=== PATIENT | male | born 1965 | race Caucasian/White ===

== ENCOUNTER 2018-09-05 22:14 | Emergency (ER) | payer MEDICARE, OTHER ==
[~2018-09-05] VITALS: Ht 172.7 cm; Wt 81.6 kg
--- NOTE | 2018-09-05 22:33 | NUR ---
PT BIB FAMILY. AAOX4. NAD. AMBULATE WITH AN ELECTRIC WHEELCHAIR. PT CAME W/O COMPLAINT OF BS IN THE 200-300 IN THE PAST 2 WEEKS. PT HAVE NOT BEEN TAKING HIS MEDICATION FOR THE 5 WEEKS. BS WAS TAKEN. AWAITING MD BECERRA.
--- NOTE | 2018-09-05 22:55 | NUR ---
IV LINE OBTAINED L AC 18G. BLOOD DRAWN AND [employer] AT BEDSIDE.
[2018-09-05 22:58] LABS: BASOPHILS # (AUTO) 0.2 /CMM (0.0-0.2); BASOPHILS % (AUTO) 2.2 % (0.0-2.0); EOSINOPHILS % (AUTO) 1.6 % (0.0-6.0); HEMATOCRIT 43 % (39-51); HEMOGLOBIN 14.7 g/dL (13.5-17.5); LYMPHOCYTES # (AUTO) 1.6 /CMM (0.8-4.8); LYMPHOCYTES % (AUTO) 20.7 % (20.0-44.0); MEAN CORPUSCULAR HGB CONC 35 g/dl (31.0-36.0); MEAN CORPUSCULAR VOLUME 91 fL (80-96); MONOCYTES # (AUTO) 0.6 /CMM (0.1-1.30); MONOCYTES % (AUTO) 7.8 % (2.0-12.0); NEUTROPHILS # (AUTO) 5.1 /CMM (1.8-8.9); NEUTROPHILS % (AUTO) 67.7 % (43.0-81.0); PLATELET COUNT (AUTO) 249 /CMM (150-450); RED BLOOD CELL COUNT(AUTO) 4.69 MIL/uL (4.5-6.0); WHITE BLOOD COUNT (AUTO) 7.6 K/uL (4.3-11.0)
[2018-09-05] MEDS ORDERED: IV NS 0.9% 1,000 ML BAG IV ONE (23:00)
[2018-09-05 23:03] LABS: CALCIUM, SERUM 9.2 mg/dL (8.5-10.1); CREATININE 0.7 mg/dL (0.6-1.3); POTASSIUM 3.7 mmol/L (3.5-5.1)
--- NOTE | 2018-09-05 23:35 | NUR ---
URINE COLLECTED SENT TO LAB.
[2018-09-05 23:38] LABS: APPEARANCE,URINE Clear (CLEAR); BILIRUBIN,URINE Negative (NEGATIVE); BLOOD, URINE Moderate Ery/uL (NEGATIVE); COLOR,URINE Yellow (YELLOW); KETONES,URINE Negative (NEGATIVE); LEUKOCYTE ESTERASE ,URINE Small (NEGATIVE); NITRITE, URINE Positive (NEGATIVE); PH,URINE 7.5 (5.0-8.0); PROTEIN,URINE Negative (NEGATIVE); UGLUCOSE 500 MG/DL mg/dL (NEGATIVE); UROBILINOGEN,URINE 0.2 EU/dL (0.2)
[2018-09-05 23:55] LABS: BACTERIA,URINE 3+ /HPF (None Seen); RBC,URINE 21-50 /HPF (0-2); SQUAMOUS EPITHELIAL CELL,UR Few /HPF (None Seen)
[2018-09-05] MEDS ORDERED: CEFTRIAXONE 1 G VIAL ONE (23:59)
[2018-09-05] MEDS ORDERED: LIDOCAINE HCL/PF 1% 30 ML SDV ONE (23:59)
[2018-09-06] MEDS ORDERED: METFORMIN 500 MG TABLET PO ONE
[2018-09-06] MEDS ORDERED: CEFTRIAXONE 1 G VIAL IM ONE
[2018-09-06] MEDS ORDERED: METFORMIN XR 500 MG TAB.SR.24H PO ONE
--- NOTE | 2018-09-06 00:40 | NUR ---
NO NOTED ADVERSE REACTION FROM [facility]. SITE NO REDNESS
--- NOTE | 2018-09-06 00:46 | NUR ---
Patient discharged to home in stable condition. Written and verbal after care instructions given. Patient verbalizes understanding of instruction.
[2018-09-06 00:53] VITALS: BP 147/101
== END 2018-09-06 00:50 | disposition home or self-care (01) ==
LOC: ER 22:20
DX: E11.65 Type 2 diabetes mellitus with hyperglycemia (principal); E11.40 Type 2 diabetes mellitus with diabetic neuropathy, unspecified; N39.0 Urinary tract infection, site not specified; I10 Essential (primary) hypertension; F41.9 Anxiety disorder, unspecified; Z87.828 Personal history of other (healed) physical injury and trauma
CPT/HCPCS: 36415; 80048; 81001; 82962; 85025; 87086; 96360; 96372; 99283; J0696; J3490; J7030; 81000-TC